=== PATIENT | male | born 1970 | race Hispanic/Latino ===

== ENCOUNTER 2020-11-30 16:08 | Emergency (ER) | payer SELFPAY ==
--- NOTE | 2020-11-30 18:14 | Emergency Department Report ---
ED General Adult HPI - General Chief complaint: Skin/Abscess/Foreign Body Stated complaint: LEGS/FEET SWOLLIN/BURN ON STOMACH Time Seen by Provider: 11/30/20 17:45 Source: patient Mode of arrival: Ambulatory Limitations: No Limitations - History of Present Illness Initial comments: 50-year-old male, history of hypertension, presents to ED with complaint of sunburn to abdomen and bilateral lower extremity swelling. Patient states he was recently released from [facility] after being [facility] for 2 years. Patient states he was working on a car 3 days ago when he sustained a sunburn to his lower abdomen. Patient states he was laying on his back underneath the car. His shirt was pulled up while he was working on the car, and his lower abdomen was exposed to the sun. Patient states he was in this position for approximately 2 hours. Patient now complaining of sunburn to the area with blisters. Patient also reports swelling to the bilateral lower legs x1 week. He denies any chest pain or shortness of breath. Patient states this swelling occurred previously, but he did not seek medical help at that time. Patient believes the swelling has recurred because he has been on his feet much more since being released from [facility]. -: week(s) (1) Location: abdomen, left, right, lower extremity Quality: burning Consistency: constant Improves with: none Worsens with: none Associated Symptoms: denies: chest pain, cough, fever/chills, nausea/vomiting, shortness of breath - Related Data Previous Rx's Medication Instructions Recorded Last Taken Type Bacitracin/Pramoxine/Aloe Vera 1 applicatio TP TID #28 gm 11/30/20 Unknown Rx [Bacitraycin Plus Ointment] Furosemide [Lasix] 20 mg PO QDAY #7 tablet 11/30/20 Unknown Rx Allergies Allergy/AdvReac Type Severity Reaction Status Date / Time Penicillins Allergy Hives Verified 12/21/15 23:47 venom-honey bee Allergy Hives Verified 12/21/15 23:47 [bee venom (honey bee)] ED Review of Systems ROS: Stated complaint: LEGS/FEET SWOLLIN/BURN ON STOMACH Other details as noted in HPI Comment: All other systems reviewed and negative Constitutional: denies: chills, fever Respiratory: denies: cough, orthopnea, shortness of breath, SOB with exertion Cardiovascular: edema. denies: chest pain Skin: rash ED Past Medical Hx - Past Medical History Previous Medical History?: Yes Hx Hypertension: Yes Additional medical history: Hx. of spinal meningitis and hernia, Epidural Steroid injectiopns for back pain - Surgical History Past Surgical History?: Yes Additional Surgical History: HIATAL HERNIA - Social History Smoking Status: Current Every Day Smoker Substance Use Type: Alcohol - Medications Home Medications: Home Medications Medication Instructions Recorded Confirmed Last Taken Type Bacitracin/Pramoxine/Aloe Vera 1 applicatio TP TID #28 gm 11/30/20 Unknown Rx [Bacitraycin Plus Ointment] Furosemide [Lasix] 20 mg PO QDAY #7 tablet 11/30/20 Unknown Rx ED Physical Exam - General Limitations: No Limitations General appearance: alert, in no apparent distress - Head Head exam: Present: atraumatic, normocephalic - Eye Eye exam: Present: normal appearance, EOMI - ENT ENT exam: Present: mucous membranes moist - Neck Neck exam: Present: normal inspection - Respiratory Respiratory exam: Present: normal lung sounds bilaterally. Absent: respiratory distress, rales - Cardiovascular Cardiovascular Exam: Present: regular rate, normal rhythm - GI/Abdominal GI/Abdominal exam: Present: soft. Absent: distended, tenderness - Extremities Exam Extremities exam: Present: other (2+ pitting edema bilateral lower legs and feet) - Neurological Exam Neurological exam: Present: alert, oriented X3 - Psychiatric Psychiatric exam: Present: normal affect, normal mood - Skin Skin exam: Present: other (First and second-degree barton with blisters lower abdominal wall) ED Course Vital Signs 11/30/20 11/30/20 11/30/20 17:37 17:42 18:55 Temperature 98.2 F 97.6 F Pulse Rate 87 Respiratory 24 Rate Blood Pressure Blood Pressure 143/96 [Right] O2 Sat by Pulse 99 98 Oximetry 11/30/20 19:01 Temperature Pulse Rate Respiratory Rate Blood Pressure 131/87 Blood Pressure [Right] O2 Sat by Pulse 100 Oximetry ED Medical Decision Making - Lab Data Result diagrams: 11/30/20 18:17 11/30/20 18:17 - Radiology Data Radiology results: report reviewed, image reviewed - Medical Decision Making 50-year-old male presents to ED with bilateral lower extremity swelling. Denies chest pain or shortness of breath. D-dimer elevated, so Doppler ultrasound was obtained. Ultrasound is negative for DVT. Remainder of labs are unremarkable. Patient will be discharged with prescription for Lasix. Patient also has delatorre nburn to lower abdominal wall.. Has been cleaned and wounds dressed by RN. Will give prescription for bacitracin. Outpatient follow-up advised, return precautions given. - Differential Diagnosis CHF, DVT, liver disease Critical care attestation.: If time is entered above; I have spent that time in minutes in the direct care of this critically ill patient, excluding procedure time. ED Disposition Clinical Impression: First degree burn of abdominal wall, Second degree burn of abdominal wall, Bilateral lower extremity edema Disposition: TO HOME OR SELFCARE Is pt being admited?: No Condition: Stable Instructions: Burn Care, Adult, [id number], Peripheral Edema, Second-Degree Burn, Adult Prescriptions: Bacitracin/Pramoxine/Aloe Vera [Bacitraycin Plus Ointment] 1 applicatio TP TID #28 gm Furosemide [Lasix] 20 mg PO QDAY #7 tablet Referrals: LARISA ZAMORANO MD [Primary Care Provider] - 3-5 Days [facility] [Provider Group] - 3-5 Days JAVY BENITEZ MD [Staff Physician] - 3-5 Days [facility] [Outside] - 3-5 Days Time of Disposition: 20:14
[2020-11-30 18:35] LABS: Basophils % (Auto) 0.6 % (0.0-1.8); Eosinophils # (Auto) 0.3 K/mm3 (0.0-0.4); Eosinophils % (Auto) 3.6 % (0.0-4.3); Hematocrit 38.1 % (35.5-45.6); Hemoglobin 13.4 gm/dl (11.8-15.2); Lymphocytes % (Auto) 28.2 % (13.4-35.0); Mean Corpuscular HGB Conc 35 % (32-34); Mean Corpuscular Volume 90 fl (84-94); Monocytes # (Auto) 0.7 K/mm3 (0.0-0.8); Monocytes % (Auto) 10.1 % (0.0-7.3); Platelet Count 292 K/mm3 (140-440); Red Blood Count 4.23 M/mm3 (3.65-5.03); Red Cell Distribution Width 13.8 % (13.2-15.2)
[2020-11-30 18:46] LABS: BUN/Creatinine Ratio 19; Blood Urea Nitrogen 15 mg/dL (9-20); Calcium 8.2 mg/dL (8.4-10.2); Hemolysis Index 2
[2020-11-30 18:50] LABS: Alanine Aminotransferase 33 units/L (7-56); Albumin 3.6 g/dL (3.9-5)
[2020-11-30 18:53] LABS: Bilirubin,Direct < 0.2 mg/dL (0-0.2)
[2020-11-30 19:27] VITALS: BP 131/87
--- NOTE | 2020-11-30 20:07 | Vascular Lab Report ---
DUPLEX DOPPLER LOWER EXTREMITY VEINS, BILATERAL INDICATION: Bilateral lower extremity edema/swelling. TECHNIQUE: Duplex doppler imaging was performed through the veins of both lower extremities using venous dustin lexii and other maneuvers. COMPARISON: None available. FINDINGS: Right Common Femoral vein: Negative. Right Superficial Femoral vein: Negative. Right Popliteal vein: Negative. Right Calf veins: Negative. Left Common Femoral vein: Negative. Left Superficial Femoral vein: Negative. Left Popliteal vein: Negative. Left Calf veins: Negative. Additional findings: None. IMPRESSION: 1. No sonographic evidence for DVT in either lower extremity. . Signer Name: Erin Nolasco MD Signed: 11/30/2020 8:03 PM Workstation Name: [id number]
== END 2020-11-30 20:59 | disposition home or self-care (01) ==
LOC: ED 16:08
DX: L55.1 Sunburn of second degree (principal); R60.0 Localized edema; I10 Essential (primary) hypertension; F17.200 Nicotine dependence, unspecified, uncomplicated; Z72.89 Other problems related to lifestyle; Z98.890 Other specified postprocedural states; Z79.899 Other long term (current) drug therapy; Z88.0 Allergy status to penicillin; Z91.030 Bee allergy status
CPT/HCPCS: 36415; 80048; 80076; 83880; 85025; 85379; 93970; 99284